=== PATIENT | female | born 1940 | race Caucasian/White ===

== ENCOUNTER 2018-05-19 17:48 | Inpatient (IN) | payer MEDICARE ==
[~2018-05-19] VITALS: Ht 157.5 cm; Wt 45.6 kg
--- NOTE | ~2018-05-19 | PN ---
PATIENT:BRET CARIAS MEDICAL RECORD: [id number] LOCATION:[facility] ADMISSION DATE: 05/19/18 PROGRESS NOTE DATE OF SERVICE: 05/25/2018 SUBJECTIVE: No new complaint. OBJECTIVE: The patient remains irritable. She is easily upset and when she becomes angry her speech becomes more incoherent. On exam, mood is indeed irritable. Affect is brittle. Speech is rambling. Content of thought shows nonspecific paranoid ideation. Sensorium shows no change. ASSESSMENT: No change in diagnosis. PLAN: 1. Maintain current medication. 2. Continue supportive therapy. TRANSINT:[id number] Voice Confirmation ID: [id number] DOCUMENT ID: [id number] IZABELLA HERNANDEZ III, MD at 0807 CC: [id number] DICTATION DATE: 05/25/18 1206 FUEL PILOT ENGINEER: 05/25/18 1310 ADM IN [place] [id number] [place] [id number]
--- NOTE | ~2018-05-19 | PN ---
PATIENT:BRET CARIAS MEDICAL RECORD: [id number] LOCATION:[facility] ADMISSION DATE: 05/19/18 PROGRESS NOTE DATE OF SERVICE: 06/08/2018 SUBJECTIVE: No new complaint offered. OBJECTIVE: The patient has done well over the weekend. Evidently, no aggression except during a personal care. This has been consistent throughout her hospitalization. On exam, the patient's mood is euthymic. Affect is slightly constricted. Speech is well modulated, but terse. Content of thought is negative for psychotic symptoms or suicidality. Sensorium shows no change. ASSESSMENT: No change in diagnosis. PLAN: 1. Continue current treatment plan. 2. Continue supportive therapy. TRANSINT:[id number] Voice Confirmation ID: [id number] DOCUMENT ID: [id number] IZABELLA HERNANDEZ III, MD at 1026 CC: [id number] DICTATION DATE: 06/08/18922 CHLORINE PLANT OPERATOR: 06/08/18 1125 DIS IN 06/08/18 [place] [id number] [place] [address]
--- NOTE | ~2018-05-19 | PN ---
PATIENT:BRET CARIAS MEDICAL RECORD: [id number] LOCATION:[facility] ADMISSION DATE: 05/19/18 PROGRESS NOTE DATE OF SERVICE: 06/05/2018 SUBJECTIVE: The patient's case was discussed with staff. She has no new complaint. OBJECTIVE: The patient is in good behavioral control with limited insight about her condition. She tolerates her medicines well. ASSESSMENT: No change in diagnoses. PLAN: Current medicines and therapies have been reviewed and will be maintained. Long-term prognosis is guarded. TRANSINT:[id number] Voice Confirmation ID: [id number] DOCUMENT ID: [id number] AMY FLOREZ MD at 1008 CC: [id number] DICTATION DATE: 06/05/18 1537 MISSION SYSTEMS ENGINEER: 06/05/18 1557 ADM IN [place] [id number] [place] [address]
--- NOTE | ~2018-05-19 | PN ---
PATIENT:BRET CARIAS MEDICAL RECORD: [id number] LOCATION:[facility] ADMISSION DATE: 05/19/18 PROGRESS NOTE DATE OF SERVICE: 05/21/2018 SUBJECTIVE: No coherent complaint. OBJECTIVE: The patient has exhibited severe behavioral disturbance. She slept only 2-1/2 hours. She has been extremely combative with staff during routine care. On exam, mood is very irritable. Affect is extremely brittle and labile. Speech is rambling. Content of thought shows paranoid ideation that is nonspecific. Sensorium shows no improvement. ASSESSMENT: No change in diagnosis. PLAN: 1. We will adjust medications as indicated. 2. Continue supportive therapy. TRANSINT:[id number] Voice Confirmation ID: [id number] DOCUMENT ID: [id number] IZABELLA HERNANDEZ III, MD at 1105 CC: [id number] DICTATION DATE: 05/21/18 1108 AUTOMOTIVE ENGINEERING TEACHER: 05/21/18 1123 ADM IN [place] [id number] [place] [id number]
--- NOTE | ~2018-05-19 | PN ---
PATIENT:BRET CARIAS MEDICAL RECORD: [id number] LOCATION:[facility] ADMISSION DATE: 05/19/18 PROGRESS NOTE DATE OF SERVICE: 05/27/2018 SUBJECTIVE: No new complaint noted. OBJECTIVE: The patient has been doing well in terms of accepting medication, feeding, and so forth. She does become agitated during activities of daily living such as having her diapers changed, her bathing, but aside from this is relatively stable. On exam, mood is slightly irritable. Affect is shallow and brittle. Speech is tangential. Content of thought is negative for overt psychosis. Sensorium unchanged. ASSESSMENT: No change in diagnosis. PLAN: 1. Continue current medications. 2. Continue supportive therapy. TRANSINT:[id number] Voice Confirmation ID: [id number] DOCUMENT ID: [id number] IZABELLA HERNANDEZ III, MD at 0841 CC: [id number] DICTATION DATE: 05/27/18 1148 DEAD MAIL CHECKER: 05/27/18 1202 ADM IN [place] [id number] [place] [id number]
--- NOTE | ~2018-05-19 | PN ---
PATIENT:BRET CARIAS MEDICAL RECORD: [id number] LOCATION:[facility] ADMISSION DATE: 05/19/18 PROGRESS NOTE DATE OF SERVICE: 06/01/2018 SUBJECTIVE: No new complaint. OBJECTIVE: The patient is continuing to show improvement. She is more cooperative with staff and for the most part taking her medications. On exam, mood is slightly irritable. Affect is shallow and brittle. Speech is tangential. Content of thought focuses on somatic concerns only. Sensorium is unchanged. ASSESSMENT: No change in diagnosis. PLAN: 1. Continue current medication. 2. Continue supportive therapy. TRANSINT:[id number] Voice Confirmation ID: [id number] DOCUMENT ID: [id number] IZABELLA HERNANDEZ III, MD at 1021 CC: [id number] DICTATION DATE: 06/01/18 1026 CHIEF BUSINESS OFFICER: 06/01/18 1116 ADM IN [place] [address] [place] [id number]
--- NOTE | ~2018-05-19 | DS ---
PATIENT:BRET CARIAS :36 MEDICAL RECORD: [id number] DISCHARGE SUMMARY ADMISSION DATE: 05/19/18 DISCHARGE DATE: 06/08/18 DATE OF ADMISSION: 05/19/2018 DATE OF DISCHARGE: 06/08/2018 HISTORY: A 77-year-old white female who was admitted from the [facility]. She had been showing agitation and increasing combativeness. Because of worsening behavior, she was admitted. For further details, please see previously dictated history. COURSE IN THE HOSPITAL: The patient was seen in consultation by Dr. Rosenthal. He noted the presence on admission of a urinary tract infection and hyperlipidemia, but no other significant medical issues. From a treatment standpoint, the patient was able to be managed quite conservatively. The urinary tract infection was addressed and resolved. Aside from this, the patient was kept on only routine Zoloft 25 mg daily and perphenazine 2 mg at bedtime. The patient initially was quite cantankerous and did not respond well to any interaction with staff. As the hospitalization progressed, the patient became adjusted to her environment and eventually became upset and agitated only during periods when personal care was being given. The patient simply does not like to be bathed, although it is obviously a necessary function. Aside from this; however, the patient responded quite well to a gentle approach and toward the end of the hospitalization was in fact very polite. By the time of discharge, it was felt the patient was entirely stable to return to the assisted environment on current medications. FINAL DIAGNOSES: AXIS I: Alzheimer's dementia with behavioral disturbance - improved. AXIS II: No diagnosis. AXIS III: Recent urinary tract infection - resolved, past history of hyperlipidemia. AXIS IV: Moderate. AXIS V: 40. PLAN: 1. The patient is discharged on current medication. 2. Diet and activities as tolerated. 3. Follow up with primary care physician assigned to the assisted. TRANSINT:[id number] Voice Confirmation ID: [id number] DOCUMENT ID: [id number] DISCHARGE SUMMARY REPORT [id number] BRET CARIAS III, IZABELLA Mayers MD at 1026 CC: [id number] DICTATION DATE: 06/08/18 0953 ENTRY LEVEL TRUCK DRIVER: 06/08/18 1318 DIS IN 06/08/18 [place] [id number] [place], [place] [id number]
--- NOTE | ~2018-05-19 | PN ---
PATIENT:BRET CARIAS MEDICAL RECORD: [id number] LOCATION:[facility] ADMISSION DATE: 05/19/18 PROGRESS NOTE DATE OF SERVICE: 05/29/2018 SUBJECTIVE: No new complaint. OBJECTIVE: The patient's behavioral pattern remains unchanged. She becomes quite agitated and sometimes will yell out when staff is attempting to do personal care such as changing her clothes or bathing her. For the most part, otherwise the patient has not been particularly agitated. On exam, mood is slightly irritable. Affect is brittle and shallow. Speech is very terse. Content of thought focuses only on somatic concerns. Sensorium shows no change. ASSESSMENT: No change in diagnosis. PLAN: 1. Continue current medication. 2. Continue supportive therapy. TRANSINT:[id number] Voice Confirmation ID: [id number] DOCUMENT ID: [id number] IZABELLA HERNANDEZ III, MD at 1959 CC: [id number] DICTATION DATE: 05/29/18 111 BRACELET FORM COVERER: 05/29/18 1122 ADM IN [place] [address] [place] [address]
--- NOTE | ~2018-05-19 | PN ---
PATIENT:BRET CARIAS MEDICAL RECORD: [id number] LOCATION:[facility] ADMISSION DATE: 05/19/18 PROGRESS NOTE DATE OF SERVICE: 05/28/2018 SUBJECTIVE: No new complaint. OBJECTIVE: The patient has continued to do reasonably well. She only becomes agitated during personal care. The rest of the time she has showed a more controlled affect. On exam, mood was euthymic today. Affect rather constricted. Speech is tangential. Content of thought focuses only on somatic concerns. Sensorium shows no change. ASSESSMENT: No change in diagnosis. PLAN: 1. Continue current medication. 2. Continue supportive therapy. TRANSINT:[id number] Voice Confirmation ID: [id number] DOCUMENT ID: [id number] IZABELLA HERNANDEZ III, MD at 0959 CC: [id number] DICTATION DATE: 05/28/18 1007 VENEER JOINTER HELPER: 05/28/18 1241 ADM IN [facility] [address] [place] [address]
--- NOTE | ~2018-05-19 | PN ---
PATIENT:BRET CARIAS MEDICAL RECORD: [id number] LOCATION:[facility] ADMISSION DATE: 05/19/18 PROGRESS NOTE DATE OF SERVICE: 06/06/2018 SUBJECTIVE: The patient's case was discussed with staff. She has no new complaint. OBJECTIVE: The patient is in good behavioral control with limited insight about her condition. She does tolerate her medicines well. ASSESSMENT: No change in diagnoses. PLAN: Brief supportive and educational interventions were made. Long-term prognosis is guarded. I anticipate the patient can be transitioned out of the hospital soon if this level of improvement is maintained. TRANSINT:[id number] Voice Confirmation ID: [id number] DOCUMENT ID: [id number] AMY FLOREZ MD at 1034 CC: [id number] DICTATION DATE: 06/06/18 1425 DOOR PULLER: 06/06/18 2301 ADM IN [place] [address] [place] [id number]
--- NOTE | ~2018-05-19 | PN ---
PATIENT:BRET CARIAS MEDICAL RECORD: [id number] LOCATION:[facility] ADMISSION DATE: 05/19/18 PROGRESS NOTE DATE OF SERVICE: 06/07/2018 SUBJECTIVE: The patient's case was discussed with staff. She has no new complaint. OBJECTIVE: The patient is in good behavioral control with limited insight about her condition. She tolerates her medicines well. ASSESSMENT: No change in diagnoses. PLAN: Current medicines and therapies have been reviewed and will be maintained. Long-term prognosis is guarded. TRANSINT:[id number] Voice Confirmation ID: [id number] DOCUMENT ID: [id number] AMY FLOREZ MD at 1354 CC: [id number] DICTATION DATE: 06/07/18 1112 GROUND WOOD SUPERVISOR: 06/07/18 1347 ADM IN [place] [id number] [place] [address]
--- NOTE | ~2018-05-19 | PN ---
PATIENT:BRET CARIAS MEDICAL RECORD: [id number] LOCATION:[facility] ADMISSION DATE: 05/19/18 PROGRESS NOTE DATE OF SERVICE: 06/04/2018 SUBJECTIVE: No new complaint. OBJECTIVE: The patient has been fairly stable. Her only agitation occurs during routine personal care. On exam, mood is euthymic. Affect is rather childlike. At times the patient giggles like a small child. Speech is incoherent. Content of thought seems to focus only on somatic concerns. Sensorium shows no change. ASSESSMENT: No change in diagnosis. PLAN: 1. Continue current medication. 2. Continue supportive therapy. TRANSINT:[id number] Voice Confirmation ID: [id number] DOCUMENT ID: [id number] IZABELLA HERNANDEZ III, MD at 0837 CC: [id number] DICTATION DATE: 06/04/18 1026 FINANCIAL INTERNSHIP: 06/04/18 1059 ADM IN [place] [id number] [place] [id number]
--- NOTE | ~2018-05-19 | PN ---
PATIENT:BRET CARIAS MEDICAL RECORD: [id number] LOCATION:[facility] ADMISSION DATE: 05/19/18 PROGRESS NOTE DATE OF SERVICE: 06/03/2018 SUBJECTIVE: No coherent complaint. OBJECTIVE: The patient is overall improved, but again shows agitation when she is overstimulated. On exam, mood is slightly anxious. Affect is brittle. Speech is rambling and nonsensical. Content of thought unchanged. Sensorium unchanged. ASSESSMENT: No change in diagnosis. PLAN: 1. Maintain current medication. 2. Continue discharge planning efforts. TRANSINT:[id number] Voice Confirmation ID: [id number] DOCUMENT ID: [id number] IZABELLA HERNANDEZ III, MD at 0748 CC: [id number] DICTATION DATE: 06/03/18 1146 WOOD CASKET ASSEMBLER: 06/03/18 1316 ADM IN [place] [address] [place] [address]
--- NOTE | ~2018-05-19 | PN ---
PATIENT:BRET CARIAS MEDICAL RECORD: [id number] LOCATION:[facility] ADMISSION DATE: 05/19/18 PROGRESS NOTE DATE OF SERVICE: 05/22/2018 SUBJECTIVE: The patient's case was discussed with staff. She has no new complaint. OBJECTIVE: The patient is in good behavioral control with limited insight about her condition. She tolerates her medicines well. Earlier today or last evening, she was very agitated, hitting, swinging at staff and actually tried to spit on staff yesterday. ASSESSMENT: No change in diagnoses. PLAN: Current medicines have been reviewed and will be maintained. I am going to increase the dose of the Trilafon slightly and will discontinue Depakote secondary to a lack of clinical indication. TRANSINT:[id number] Voice Confirmation ID: [id number] DOCUMENT ID: [id number] AMY FLOREZ MD at 0949 CC: [id number] DICTATION DATE: 05/22/18 1237 CUSTOMER CARE ASSISTANT: 05/22/18 1246 ADM IN [place] [address] [place] [address]
--- NOTE | ~2018-05-19 | PSY ---
PATIENT NAME:BRET CARIAS MEDICAL RECORD: [id number] : 36 LOCATION:[facility] ADMISSION DATE: 05/19/18 ACCOUNT: [id number] PSYCHIATRIC EVALUATION DATE OF EVALUATION: 05/20/18 Initial Psychiatric Workup IDENTIFYING DATA: A 77-year-old white female admitted from [facility]. The patient had been showing increasing combativeness and agitation. She had been striking staff members during personal care and was beginning to show aggression toward other residents as well. She had been scratching at staff members, biting, yelling and attempting to strike them with her fist. Because of worsening behavior, the patient is now admitted. PAST MEDICAL HISTORY: No documentation in terms of treatment for dementia, although there is some mention of a diagnosis of Alzheimer's in the previous record. In addition to this, the patient has a history of hyperlipidemia, recent falls, acute urinary tract infection. FAMILY HISTORY: Noncontributory. SOCIAL HISTORY: Relatively few details are currently known. The patient does not have a substance abuse history. She has been a half-way resident for some time. ALLERGIES: LISTED PENICILLINS AND IODINE. PHYSICAL EXAMINATION: The patient is seated in a Flor chair. She is very hostile toward the examiner. Speech tends to be rambling and at times completely incoherent. The patient does not visually focus on the examiner very well and may have significant visual impairment. As the examiner speaks to her, the patient swings at the air as if attempting to strike the examiner. Mood is indeed irritable. Affect is very brittle. Speech is mentioned above. Content of thought seems to exhibit nonspecific paranoid ideation. The patient is oriented to person, but not as to place nor time. She shows global memory impairment. DIAGNOSTIC IMPRESSION: AXIS I: Alzheimer dementia with behavioral disturbance. AXIS II: No diagnosis. AXIS III: Urinary tract infection (acute), history of hyperlipidemia, and history of recent falls. AXIS IV: Severe. AXIS V: 36. PLAN: 1. The patient is admitted for further medical and psychiatric workup. 2. Diet and activities as tolerated. 3. Daily supportive therapy. TRANSINT:[id number] Voice Confirmation ID: [id number] DOCUMENT ID: [id number] IZABELLA HERNANDEZ III, MD at 0911 CC: [id number] DICTATION DATE: 05/20/18 1141 POLICE LIAISON: 05/20/18 1206 ADM IN [facility] [address] [id number]
--- NOTE | ~2018-05-19 | PN ---
PATIENT:BRET CARIAS MEDICAL RECORD: [id number] LOCATION:[facility] ADMISSION DATE: 05/19/18 PROGRESS NOTE DATE OF SERVICE: 05/26/2018 SUBJECTIVE: No new complaint. OBJECTIVE: Staff reports slight improvement. The patient is somewhat less hostile on approach. She continues to become upset with activities of daily living such as bathing, but overall is eating better and a little more compliant with medications. On exam, mood is rather irritable. Affect is brittle. Speech tends to be tangential. Content of thought is negative for overt psychosis. Sensorium shows no change. ASSESSMENT: No change in diagnosis. PLAN: 1. Continue current medications. 2. Continue supportive therapy. TRANSINT:[id number] Voice Confirmation ID: [id number] DOCUMENT ID: [id number] IZABELLA HERNANDEZ III, MD at 1058 CC: [id number] DICTATION DATE: 05/26/18 1154 SLOT FLOOR SUPERVISOR: 05/26/18 1208 ADM IN [place] [id number] [place] [address]
--- NOTE | ~2018-05-19 | PN ---
PATIENT:BRET CARIAS MEDICAL RECORD: [id number] LOCATION:[facility] ADMISSION DATE: 05/19/18 PROGRESS NOTE DATE OF SERVICE: 06/02/2018 SUBJECTIVE: No new complaint. OBJECTIVE: The patient continues to object to routine care such as bathing. This is invariably a struggle for staff. Aside from this, though the patient's behavior has been quite good. Mood for the most part has been euthymic. Affect is still somewhat brittle, but manageable. Speech tends to be tangential. Content of thought revolves around somatic concerns. Sensorium shows no change. ASSESSMENT: No change in diagnosis. PLAN: 1. Continue all current medication. 2. Anticipate discharge in the near future. TRANSINT:[id number] Voice Confirmation ID: [id number] DOCUMENT ID: [id number] IZABELLA HERNANDEZ III, MD at 0934 CC: [id number] DICTATION DATE: 06/02/18 1136 SAP HANA ARCHITECT: 06/02/18 1153 ADM IN [facility] [address] [place] [address]
--- NOTE | ~2018-05-19 | PN ---
PATIENT:BRET CARIAS MEDICAL RECORD: [id number] LOCATION:E[facility] SheetsLuis AKaren ADMISSION DATE: 05/19/18 PROGRESS NOTE DATE OF SERVICE: 05/23/2018 SUBJECTIVE: The patient's case was discussed with staff. She has no new complaint. OBJECTIVE: The patient is in good behavioral control with limited insight about her condition. She does tolerate her medicines well. ASSESSMENT: No change in diagnoses. PLAN: Current medicines have been reviewed and will be maintained. The patient has not been aggressive today. On the whole, I would say her condition has improved. TRANSINT:[id number] Voice Confirmation ID: [id number] DOCUMENT ID: [id number] AMY FLOREZ MD at 1445 CC: [id number] DICTATION DATE: 05/23/18 1005 JUNIOR PHP DEVELOPER: 05/23/18 1201 ADM IN [place] [address] [place] [address]
[2018-05-19] MEDS ORDERED: BUSPAR5 MG PO (19:04)
[2018-05-19] MEDS ORDERED: REFRESH TEARS15 ML EACH EYE (19:05)
[2018-05-19] MEDS ORDERED: DEPAKOTE SPRIN125 MG PO (19:05)
[2018-05-19 20:13] LABS: UDS - AMPHET NEGATIVE QUAL (NEGATIVE); UDS - BARB NEGATIVE QUAL (NEGATIVE); UDS - BENZO NEGATIVE QUAL (NEGATIVE); UDS - COCAINE NEGATIVE QUAL (NEGATIVE); UDS - OPIATE NEGATIVE QUAL (NEGATIVE); UDS - PCP NEGATIVE QUAL (NEGATIVE); UDS - THC NEGATIVE QUAL (NEGATIVE)
[2018-05-19 20:20] LABS: APPEARANCE CLEAR (CLEAR); BILIRUBIN NEGATIVE (NEGATIVE); COLOR YELLOW (YELLOW); GLUCOSE NEGATIVE (NEGATIVE); KETONE NEGATIVE (NEGATIVE); NITRITE POSITIVE (NEGATIVE); PROTEIN NEGATIVE (NEGATIVE); UROBILINOGEN NORMAL (NORMAL); WHITE CELLS - URINE 0-5 /hpf (0-5)
[2018-05-19 20:21] LABS: BACTERIA MODERATE /hpf (NONE SEEN); RED CELLS - URINE 0-5 /hpf (0-5)
[2018-05-19 20:25] LABS: BASOPHILS 0.1 % (0-2); EOSINOPHILS 1.9 % (0-7); HEMATOCRIT 37.5 % (36.0-48.0); HEMOGLOBIN 12.2 g/dL (12-16); IMMATURE GRANULOCYTES 0.1 % (0-5); LYMPHOCYTES 27.7 % (15-50); MCH 31.1 pg (26.0-34.0); MCHC 32.5 g/dL (31.0-37.0); MCV 95.7 fL (80.0-100.0); MEAN PLATELET VOLUME 10.8 fL (7.4-10.4); MONOCYTES 7.1 % (2-11); NEUTROPHILS 63.1 % (40-80); PLATELET COUNT 194 10x3/uL (130-400); RBC 3.92 10x6/uL (4.00-5.40); WBC 7.2 10x3/uL (4.8-10.8)
[2018-05-19 20:41] LABS: ALKALINE PHOSPHATASE 80 U/L (46-116); ALT (SGPT) 11 U/L (10-68); BILIRUBIN - TOTAL 0.18 mg/dL (0.2-1.3); CALC OSMOLALITY 298 mosm/kg (275-300); CALCIUM 8.9 mg/dL (8.5-10.1); CARBON DIOXIDE 26.4 mmol/L (21.0-32.0); CHLORIDE - SERUM 110 mmol/L (98-107); CREATININE - SERUM 0.6 mg/dL (0.6-1.3); GLUCOSE 95 mg/dL (74-106); POTASSIUM - SERUM 5.2 mmol/L (3.5-5.1); PROTEIN - SERUM 6.8 g/dL (6.4-8.2); SODIUM 146 mmol/L (136-145); UREA NITROGEN 34 mg/dL (7-18); eGFR NON AFRICAN AMERICAN > 90 mL/min (90-120)
[2018-05-19 21:45] VITALS: BP 165/56
[2018-05-20 09:31] VITALS: BMI 29.2
[2018-05-20 18:00] VITALS: BP 122/77
[2018-05-20 19:33] VITALS: BP 91/49
[2018-05-21 08:12] VITALS: Ht 157.5 cm; Wt 45.6 kg
[2018-05-21 08:30] VITALS: BP 120/55
[2018-05-21 21:13] VITALS: BP 113/63
[2018-05-23 19:58] VITALS: BP 144/71
[2018-05-24 07:00] VITALS: BP 98/69
[2018-05-25 07:00] VITALS: BP 136/64
[2018-05-26 10:03] VITALS: BP 144/95
[2018-05-27 00:11] VITALS: BP 128/62
[2018-05-27 08:00] VITALS: BP 139/55
[2018-05-29 10:47] VITALS: BP 118/56
[2018-05-29 21:09] VITALS: BP 110/56
[2018-05-30 11:14] VITALS: BP 122/91
[2018-05-30 19:32] VITALS: BP 94/72
[2018-05-31 07:00] VITALS: BP 147/42
[2018-05-31 19:20] VITALS: BP 149/59
[2018-06-01 07:00] VITALS: BP 178/88
[2018-06-02 10:25] VITALS: BP 126/69
[2018-06-02 19:36] VITALS: BP 105/56
[2018-06-03 10:56] VITALS: BP 160/57
[2018-06-04 09:45] VITALS: BP 99/75
[2018-06-04 19:56] VITALS: BP 140/70
[2018-06-05 09:42] VITALS: BP 133/53
[2018-06-05 19:39] VITALS: BP 157/94
[2018-06-06 09:56] VITALS: BP 146/62
[2018-06-06 20:00] VITALS: BP 139/37
[2018-06-07 10:13] VITALS: BP 136/66
[2018-06-07 20:41] VITALS: BP 126/73
[2018-06-08 08:00] VITALS: BP 153/105
[2018-06-08] MEDS ORDERED: PERPHENAZINE2 MG PO (09:49)
[2018-06-08] MEDS ORDERED: ZOLOFT50 MG PO (09:49)
== END 2018-06-08 11:30 | DRG 57 ==
LOC: D.ER 17:48 → D.PSYCH 22:51
PROVIDERS: Family Medicine
DX: G30.9 Alzheimer's disease, unspecified (principal); F02.81 Dementia in other diseases classified elsewhere, unspecified severity, with behavioral disturbance; N39.0 Urinary tract infection, site not specified; N17.9 Acute kidney failure, unspecified; E78.5 Hyperlipidemia, unspecified; R53.81 Other malaise; Z91.81 History of falling